=== PATIENT | female | born 1990 | race American Indian/Alaskan Native ===

== ENCOUNTER 2017-01-11 17:44 | Emergency (ER) | payer SELFPAY ==
[2017-01-11] MEDS ORDERED: REGLAN IV ONE (19:34)
[2017-01-11] MEDS ORDERED: NACL 0.9% 500 ML 500 ML IV ONE (19:34)
[2017-01-11] MEDS ORDERED: DECADRON IV ONE (19:34)
[2017-01-11] MEDS ORDERED: BENADRYL IV ONE (19:34)
[2017-01-11] MEDS ORDERED: DECADRON IM ONE (19:52)
[2017-01-11] MEDS ORDERED: FIORICET PO ONE (19:52)
--- NOTE | 2017-01-11 20:24 | Emergency Department Report ---
ED Headache HPI - General Chief Complaint: Headache Stated Complaint: MIGRAINE Time Seen by Provider: 01/11/17 19:28 Source: patient Exam Limitations: no limitations - History of Present Illness Initial Comments: Patient is a 26 year old female who presents to the ED for complaints of migraine headaches. Patient reports that she has a history of migraine headaches and has been increasing in frequency recently. Patient reports that taking Motrin for it without much relief. States that she had a head injury when she was 15 years of age and was told she had lived with migraines the rest of her life. Patient denies seeing a neurologist at this time. Quality: moderate Head Injury Location: frontal, temporal Recent Head Trauma: frequent headaches, chronic headaches Modifying Factors: improves with: exposure to light Associated Symptoms: denies: confusion, fatigue, facial pain, fever/chills, flushing, loss of consciousness, nausea/vomiting, nasal congestion, nasal drainage, seizures, sinus infection, stiff neck, vision changes, weakness Allergies/Adverse Reactions: Allergies No Known Allergies Allergy (Verified 03/15/16 18:14) Home Medications: Ambulatory Orders Butalbit/Acetamin/Caff/Codeine [Fioricet/Codeine [id number]] 1 cap PO Q6HR PRN #20 cap 03/15/16 Promethazine [Phenergan TAB] 25 mg PO Q6HR PRN #20 tab 03/15/16 Cyclobenzaprine [Flexeril] 10 mg PO TID PRN #15 tablet 09/22/16 Ibuprofen [Motrin 600 MG tab] 600 mg PO Q8H PRN #50 tablet 09/22/16 Butalb/Acetamin/Caff 50-325-40 [Fioricet] 1 tab PO Q8HR PRN #20 tablet 01/11/17 ED Review of Systems ROS: Stated complaint: MIGRAINE Other details as noted in HPI Constitutional: denies: chills, fever Eyes: denies: eye pain, eye discharge, vision change ENT: denies: ear pain, throat pain Respiratory: denies: cough, shortness of breath, wheezing Cardiovascular: denies: chest pain, palpitations Skin: denies: rash, lesions Neurological: headache. denies: weakness, numbness, paresthesias, abnormal gait , vertigo Psychiatric: denies: anxiety, depression ED Past Medical Hx - Past Medical History Hx Hypertension: Yes Hx Congestive Heart Failure: No Hx Diabetes: No Hx Deep Vein Thrombosis: No Hx Renal Disease: No Hx Sickle Cell Disease: No Hx Headaches / Migraines: Yes (MIGRAINES) Hx Seizures: No Hx Asthma: No Hx COPD: No Hx HIV: No - Surgical History Past Surgical History?: Yes Additional Surgical History: x3, cholecystectomy - Social History Smoking Status: Never Smoker Substance Use Type: None - Medications Home Medications: Home Medications Medication Instructions Recorded Confirmed Last Taken Type Butalbit/Acetamin/Caff/Codeine 1 cap PO Q6HR PRN #20 cap 03/15/16 Unknown Rx [Fioricet/Codeine [id number]] Promethazine [Phenergan TAB] 25 mg PO Q6HR PRN #20 tab 03/15/16 Unknown Rx Cyclobenzaprine [Flexeril] 10 mg PO TID PRN #15 tablet 09/22/16 Unknown Rx Ibuprofen [Motrin 600 MG tab] 600 mg PO Q8H PRN #50 tablet 09/22/16 Unknown Rx Butalb/Acetamin/Caff 50-325-40 1 tab PO Q8HR PRN #20 tablet 01/11/17 Unknown Rx [Fioricet] ED Physical Exam - General Limitations: No Limitations General appearance: alert, in no apparent distress - Head Head exam: Present: atraumatic, normocephalic - Eye Eye exam: Present: normal appearance, PERRL, EOMI - Respiratory Respiratory exam: Present: normal lung sounds bilaterally. Absent: respiratory distress - Cardiovascular Cardiovascular Exam: Present: regular rate, normal rhythm. Absent: systolic murmur, diastolic murmur, rubs, gallop - Neurological Exam Neurological exam: Present: alert, oriented X3, CN II-XII intact, normal gait - Expanded Neurological Exam Expanded Neurological exam: Absent: innattentive, memory loss-remote event, memory loss- recent event, ataxia, receptive aphasia Patient oriented to: Present: person, place, time Speech: Present: fluid speech Cranial nerves: EOM's Intact: Normal, Facial Sensation: Normal Cerebellar function: Finger to Nose: Normal, Romberg: Normal Motor strength exam: RUE: 5, LUE: 5, RLE: 5, LLE: 5 Best Eye Response (Denia): (4) open spontaneously Best Motor Response (Alviso): (6) obeys commands Best Verbal Response (Denia): (5) oriented Denia Total: 15 - Psychiatric Psychiatric exam: Present: normal affect, normal mood ED Course Vital Signs 01/11/17 17:49 Temperature 98.3 F Pulse Rate 68 Respiratory 18 Rate Blood Pressure 123/86 O2 Sat by Pulse 100 Oximetry ED Medical Decision Making - Medical Decision Making Patient is resting comfortably in the ED room. Initially I had ordered IV Reglan, Benadryl, Decadron, IV fluids and a CT scan. 3 minutes later patient states that she has to go home and take her daughter from a day care and would not like to stay for CT scan. We'll give oral Fioricet and IM Decadron at this time. Advised to follow-up with neurologist in 2-3 days. May return to the ED for worsening symptoms. - Differential Diagnosis migraine headaches, tension headaches, sinus headaches, cluster headaches. Critical care attestation.: If time is entered above; I have spent that time in minutes in the direct care of this critically ill patient, excluding procedure time. ED Disposition Clinical Impression: Chronic migraine Disposition: DISCHARGED TO HOME OR SELFCARE Is pt being admited?: No Does the pt Need Aspirin: No Condition: Stable Instructions: Migraine Headache (ED) Prescriptions: Butalb/Acetamin/Caff 50-325-40 [Fioricet] 1 tab PO Q8HR PRN #20 tablet PRN Reason: Headache Referrals: PRIMARY CAREMD [Primary Care Provider] - 3-5 Days RENATA ONOFRE MD [Staff Physician] - 3-5 Days Time of Disposition: 20:26
[2017-01-11 20:27] VITALS: BP 120/84
== END 2017-01-11 20:25 | disposition home or self-care (01) ==
LOC: ED 17:44
DX: G43.801 Other migraine, not intractable, with status migrainosus (principal); G89.29 Other chronic pain; I10 Essential (primary) hypertension
CPT/HCPCS: 81025; 96372; 99283; J1100; J1200; J2765; J7040